=== PATIENT | female | born 2000 | race Two or more races ===

== ENCOUNTER → 2021-10-29 | Outpatient (REF) | LOC: M EMP 14:16 | PROVIDERS: ATTEND Family Medicine | DX: Z20.828 Contact with and (suspected) exposure to other viral communicable diseases (principal) ==

== ENCOUNTER → 2021-10-30 | Outpatient (REF) | LOC: M EMP 15:08 | PROVIDERS: ATTEND Family Medicine | DX: Z20.828 Contact with and (suspected) exposure to other viral communicable diseases (principal) ==

== ENCOUNTER → 2022-12-08 | Outpatient (CLI) | payer OTHER ==
[~2022-12-08] MED LIST: BUPIVACAINE HCL 0.25% 10ML VIAL As Ordered ONE; BUPIVACAINE HCL 0.25% 30ML VIAL As Ordered ONE; NORCO, ANEXSIA 5/325MG TABLET (HYDROcodone/ACETAMINOPHEN) As Ordered ONE; TRIAMCINOLONE ACETONIDE SUSP 40MG/ML 1ML VIAL As Ordered ONE; diazePAM 5MG TABLET As Ordered ONE
== END ==
LOC: M PAIN 15:00
PROVIDERS: ATTEND Anesthesiology
DX: M79.18 Myalgia, other site (principal); Z79.899 Other long term (current) drug therapy
CPT/HCPCS: 20552; J3301; S0020

== ENCOUNTER → 2023-03-01 | Outpatient (CLI) | payer OTHER ==
[~2023-03-01] MED LIST changes: -BUPIVACAINE HCL 0.25% 10ML VIAL As Ordered ONE; -BUPIVACAINE HCL 0.25% 30ML VIAL As Ordered ONE; +CYCL-707 PO; +IBUP1TAB7 PO; +LIDO5DIS41 TD; -NORCO, ANEXSIA 5/325MG TABLET (HYDROcodone/ACETAMINOPHEN) As Ordered ONE; +PRED20TA PO; -TRIAMCINOLONE ACETONIDE SUSP 40MG/ML 1ML VIAL As Ordered ONE; -diazePAM 5MG TABLET As Ordered ONE
== END ==
LOC: M PAIN 10:30
PROVIDERS: ATTEND Nurse Practitioner Family
DX: M79.18 Myalgia, other site (principal); G89.29 Other chronic pain; M25.511 Pain in right shoulder; Z87.891 Personal history of nicotine dependence; Z79.899 Other long term (current) drug therapy

== ENCOUNTER → 2023-03-20 | Outpatient (CLI) | payer OTHER ==
[~2023-03-20] MED LIST changes: +ISOVUE-370 76% 100ML VIAL As Ordered ONE
== END ==
LOC: M RAD 08:13
PROVIDERS: ATTEND Family Medicine
DX: R22.1 Localized swelling, mass and lump, neck (principal)

== ENCOUNTER → 2023-03-30 | Outpatient (CLI) | payer OTHER ==
[~2023-03-30] MED LIST changes: -ISOVUE-370 76% 100ML VIAL As Ordered ONE
== END ==
LOC: M PLARAD 07:59
PROVIDERS: ATTEND Family Medicine
DX: H53.2 Diplopia (principal)

== ENCOUNTER → 2025-01-16 | Outpatient (CLI) | payer OTHER | LOC: M EKG 15:07 | PROVIDERS: ATTEND Internal Medicine | DX: R00.2 Palpitations (principal) ==

== ENCOUNTER → 2025-01-31 | Outpatient (CLI) | payer OTHER | LOC: M LAB 10:33 | PROVIDERS: ATTEND Nurse Practitioner | DX: R10.2 Pelvic and perineal pain (principal); Z78.9 Other specified health status ==

== ENCOUNTER → 2025-05-10 | Outpatient (REF) | payer OTHER ==
[~2025-05-10] MED LIST changes: +LIDO1ADH93 TD; -LIDO5DIS41 TD
== END ==
LOC: M LAB REF 04-27 11:10
PROVIDERS: ATTEND Registered Nurse
DX: N39.0 Urinary tract infection, site not specified (principal)

== ENCOUNTER → 2025-07-17 | Outpatient (CLI) | payer OTHER | LOC: M PLAIMG 10:46 | PROVIDERS: ATTEND Internal Medicine | DX: R01.1 Cardiac murmur, unspecified (principal) ==